=== PATIENT | male | born 1980 | race Caucasian/White ===

== ENCOUNTER → 2019-12-20 | Outpatient (CLI) | payer BC | LOC: ZCOL.LAB 16:11 | DX: U07.1 COVID-19 (principal) ==

== ENCOUNTER → 2024-03-15 | Outpatient (CLI) | payer BC, OTHER ==
[~2024-03-15] MED LIST: Iohexol 300 - 100 ML VIAL IV ONE; NS 100 ML IV SCH
== END ==
LOC: COL.RAD 09:50
DX: I71.20 Thoracic aortic aneurysm, without rupture, unspecified (principal); Z98.890 Other specified postprocedural states
CPT/HCPCS: Q9967